=== PATIENT | male | born 1995 | race Caucasian/White ===

== ENCOUNTER 2019-09-20 13:16 | Inpatient (IN) | payer OTHER ==
[~2019-09-20] VITALS: Ht 180.3 cm; Wt 83.3 kg
--- NOTE | 2019-09-20 13:58 | NUR ---
TO ROOM FROM LOBBY. NAD.
--- NOTE | 2019-09-20 14:13 | NUR ---
PT SITTING UP IN GURNEY, TALKING WITH EASE WITH FRIEND. SENT BY [facility] FOR RO PNEUMONIA AND HYPOXIA. PT REPORTS "FEELING SORT OF LIKE I WAS GETTING THE FLU" X ONE WEEK, WORSENING TO PRODUCTIVE COUGH X THREE DAYS. +SUBJECTIVE FEVER/GENERALIZED JOINT PAIN. PT PWD, RESPIRATIONS EVEN/UNLABORED. SPO2 88-91% ON RA. PLACED ON 1L O2 BY NC. SPO2 TO 95%. BP/SPO2 MONITORING IN PLACE.
[2019-09-20] MEDS ORDERED: SODIUM CHLORIDE FLUSH 10ML SYR IVF ONE (14:30)
[2019-09-20] MEDS ORDERED: CEFTRIAXONE PMX 1GM/50ML 50 ML IVPB ONE (14:30)
[2019-09-20] MEDS ORDERED: AZITHROMYCIN 500 MG in SODIUM CHLORIDE 0.9% 250 ML IVPB ONE (14:30)
[2019-09-20] MEDS ORDERED: CEFTRIAXONE PMX 1GM/50ML 50 ML ONE (14:38)
--- NOTE | 2019-09-20 14:42 | NUR ---
PIV ESTABLISHED. BC X2 DRAWN. IV ABX INITIATED.
[2019-09-20 15:06] LABS: BASOPHILS # (AUTO) 0.02 x10^3/uL (0-0.1); BASOPHILS % (AUTO) 0 % (0-1); EOSINOPHILS # (AUTO) 0.02 x10^3/uL (0-0.4); EOSINOPHILS % (AUTO) 0 % (1-7); LYMPHOCYTES # (AUTO) 0.58 x10^3/uL (1-3.4); LYMPHOCYTES % (AUTO) 5 % (22-44); MD NO; MEAN CORPUSCULAR HEMOGLOBIN 30.2 pg (27.5-34.5); MEAN CORPUSCULAR HGB CONC 33.8 g/dL (33.2-36.2); MEAN CORPUSCULAR VOLUME 89.3 fL (81-97); MEAN PLATELET VOLUME 8.3 fL (7.4-10.4); MONOCYTES # (AUTO) 1.05 x10^3/uL (0.2-0.8); MONOCYTES % (AUTO) 10 % (2-9); NEUTROPHILS # (AUTO) 9.14 x10^3/uL (1.8-6.8); NEUTROPHILS % (AUTO) 85 % (42-75); PLATELET COUNT 236 x10^3/uL (130-400); RED BLOOD COUNT 4.65 x10^6/uL (4.38-5.82); RED CELL DISTRIBUTION WIDTH 14.4 % (9.4-14.8)
[2019-09-20 15:24] LABS: ANION GAP 11 mmol/L (5-15); CALCIUM 8.5 mg/dL (8.5-10.1); CHLORIDE 104 mmol/L (98-107); CREATININE 0.94 mg/dL (0.7-1.3)
--- NOTE | 2019-09-20 15:45 | NUR ---
NO S/S OF ABX RXN NOTED. SECOND ABX INITIATED PER ORDER. SPO2 88-90% ON RA AFTER ACTIVITY. SPO2 >90% ON 2L BY NC.
[2019-09-20] MEDS ORDERED: ONDANSETRON ODT 4 MG PO PRN (16:00)
[2019-09-20] MEDS ORDERED: ONDANSETRON 2MG/ML, 2ML IVPush PRN (16:00)
[2019-09-20] MEDS ORDERED: KETOROLAC 30 MG/1 ML IV PRN (16:00)
[2019-09-20] MEDS ORDERED: BACLOFEN 10 MG TABLET PO PRN (16:00)
[2019-09-20] MEDS ORDERED: hydrALAzine 20 MG/ML, 1ML IVPush PRN (16:00)
[2019-09-20] MEDS ORDERED: BUTALB/APAP/CAFFEINE 50MG/325MG/40MG PO PRN (16:00)
[2019-09-20] MEDS ORDERED: IBUPROFEN 600 MG TABLET PO PRN (16:00)
[2019-09-20] MEDS ORDERED: GUAIFENESIN/DM 200-20MG, 10ML UDC PO PRN (16:00)
[2019-09-20] MEDS ORDERED: ACETAMINOPHEN 325 MG TABLET PO PRN (16:00)
[2019-09-20] MEDS ORDERED: TRAZODONE 50MG TABLET PO PRN (16:00)
[2019-09-20] MEDS ORDERED: POLYETHYLENE GLYCOL 17 GM PACKET PO PRN (16:00)
--- NOTE | 2019-09-20 16:23 | NUR ---
POC IS ADMIT. PT AWARE AND DEMONSTRATES UNDERSTANDING. IVF CONTINUES TO INFUSE. NO S/S OF ABX RXN NOTED. PT REPORTS MILD NAUSEA AFTER BREATHING TX. DENIES NEED FOR MEDICATIONS.
[2019-09-20] MEDS ORDERED: ALBUTEROL SULFATE 2.5 MG/3 ML NPPB ONE (16:30)
[2019-09-20] MEDS ORDERED: POTASSIUM CHLORIDE 20 MEQ in LACTATED RINGERS 1,000 ML IV ONE (17:00)
--- NOTE | 2019-09-20 18:04 | NUR ---
POC IS HOLD PT IN ED UNTIL FLOOR BED IS AVAILABLE. PT MADE AWARE AND DEMONSTRATES UNDERSTANDING. MAINTINENCE FLUID REQUESTED FROM PHARMACY. PT DENIES NEEDS. BP/SPO2 REMAIN IN PLACE. SPO2 >90% ON 2L BY NC. RESPIRATIONS EVEN/UNLABORED WITH OCCASIONAL STRONG COUGH.
--- NOTE | 2019-09-20 18:34 | NUR ---
REPORT CALLED TO [facility] ON FLOOR. PT PREPARED FOR TRANSPORT
[2019-09-20 22:10] VITALS: BP 123/76
[2019-09-21 01:55] VITALS: BP 145/84
[2019-09-21] MEDS: CEFTRIAXONE PMX 1GM/50ML 50 ML IV SCH ×2 (02:13→13:25)
[2019-09-21 06:31] LABS: BASOPHILS # (AUTO) 0.03 x10^3/uL (0-0.1); BASOPHILS % (AUTO) 0 % (0-1); EOSINOPHILS # (AUTO) 0.09 x10^3/uL (0-0.4); EOSINOPHILS % (AUTO) 1 % (1-7); LYMPHOCYTES # (AUTO) 0.81 x10^3/uL (1-3.4); LYMPHOCYTES % (AUTO) 8 % (22-44); MD NO; MEAN CORPUSCULAR HGB CONC 33.4 g/dL (33.2-36.2); MEAN CORPUSCULAR VOLUME 89.7 fL (81-97); MEAN PLATELET VOLUME 7.9 fL (7.4-10.4); MONOCYTES # (AUTO) 1.32 x10^3/uL (0.2-0.8); MONOCYTES % (AUTO) 13 % (2-9); NEUTROPHILS # (AUTO) 8.26 x10^3/uL (1.8-6.8); NEUTROPHILS % (AUTO) 79 % (42-75); PLATELET COUNT 233 x10^3/uL (130-400); RED CELL DISTRIBUTION WIDTH 14.6 % (9.4-14.8)
[2019-09-21 06:38] LABS: ANION GAP 6 mmol/L (5-15); CALCIUM 8.7 mg/dL (8.5-10.1); CHLORIDE 108 mmol/L (98-107); CREATININE 0.76 mg/dL (0.7-1.3)
[2019-09-21 08:28] VITALS: BP 133/85
[2019-09-21] MEDS: AZITHROMYCIN 500 MG in SODIUM CHLORIDE 0.9% 250 ML IV SCH (09:49)
[2019-09-21 12:59] VITALS: BP 160/83
[2019-09-21 20:19] VITALS: BP 133/74
[2019-09-22 01:19] VITALS: BP 117/78
[2019-09-22] MEDS: CEFTRIAXONE PMX 1GM/50ML 50 ML IV SCH (01:36)
[2019-09-22 08:16] VITALS: BP 129/83
[2019-09-22] MEDS ORDERED: AZIT250T PO (08:36)
[2019-09-22] MEDS ORDERED: CEFD300C37 PO (08:36)
[2019-09-22] MEDS: AZITHROMYCIN 500 MG in SODIUM CHLORIDE 0.9% 250 ML IV SCH (09:16)
== END 2019-09-22 11:10 | disposition home or self-care (01) | DRG 871 ==
LOC: ED 16:25 → OBSVTOIN 17:41 → EDIP 17:41 → INTOOBSV 17:41 → 4EST 19:03 → DCLOUNGE 09-22 11:03
PROVIDERS: ADMIT Hospitalist; ATTEND Family Medicine
DX: A41.9 Sepsis, unspecified organism (principal); J15.9 Unspecified bacterial pneumonia; E44.0 Moderate protein-calorie malnutrition; E87.2 Acidosis; Z68.25 Body mass index [BMI] 25.0-25.9, adult; E83.51 Hypocalcemia; F12.90 Cannabis use, unspecified, uncomplicated; R09.02 Hypoxemia
CPT/HCPCS: 36415; 96365; 96367; 99285; J7613; 80048; 82040; 83605; 83735; 84100; 85025; 87040; 87070; 87205; 94640; G0378; J0456; J0696; J2405; J3480; J7050; J7120

== ENCOUNTER 2019-10-07 17:52 | Emergency (ER) | payer OTHER ==
[~2019-10-07] VITALS: Ht 180.3 cm; Wt 83.0 kg
[~2019-10-07 17:52] MED LIST: AZIT250T PO; CEFD300C37 PO
--- NOTE | 2019-10-07 18:08 | NUR ---
OFFERED WC, PT REFUSED, PT AMB BACK TO ROOM FROM [facility], PT STATED HE WENT OVER HANDLE BARS, DENIES LOC, DENIES NECK PAIN. LEFT HIP PAIN, AND MULTIPLE ABRASIONS NOTED ON BOTH ARMS.
--- NOTE | 2019-10-07 18:21 | NUR ---
PT C/O LEFT FOREARM AND LEFT HIP PAIN. CONNECTED TO MONITORING. MD AT BEDSIDE FOR ASSESSMENT.
[2019-10-07] MEDS ORDERED: NEOSPORIN OINT. PKT 1 PACKET ONE (18:32)
--- NOTE | 2019-10-07 19:21 | NUR ---
PT GOING TO XRAY
[2019-10-07 19:45] VITALS: BP 132/84
--- NOTE | 2019-10-07 19:46 | NUR ---
PT BACK FROM [facility]. PT RESTING ON [facility]. LJ.
--- NOTE | 2019-10-07 20:13 | NUR ---
MD AT BEDSIDE TO UPDATE PT ON POC.
== END 2019-10-07 20:57 | disposition home or self-care (01) ==
LOC: ED 20:17
DX: S73.112A Iliofemoral ligament sprain of left hip, initial encounter (principal); S83.92XA Sprain of unspecified site of left knee, initial encounter; S50.11XA Contusion of right forearm, initial encounter; S50.12XA Contusion of left forearm, initial encounter; V86.56XA Driver of dirt bike or motor/cross bike injured in nontraffic accident, initial encounter; Y93.89 Activity, other specified; Y92.89 Other specified places as the place of occurrence of the external cause; Y99.8 Other external cause status
CPT/HCPCS: 99283; 99284